=== PATIENT | male | born 1985 | race Caucasian/White ===

== ENCOUNTER 2020-10-24 10:17 | Day surgery (SDC) | payer OTHER ==
[~2020-10-24] VITALS: Ht 182.9 cm; Wt 155.8 kg
[~2020-10-24 10:17] MED LIST: BUPIVACAINE/PF 0.25% ONE
[2020-10-24] MEDS ORDERED: FENTANYL PF 250 MCG/5ML ONE (10:43)
[2020-10-24] MEDS ORDERED: MIDAZOLAM 1 MG/ML, 2ML ONE (10:43)
[2020-10-24] MEDS ORDERED: NO HOME MEDS PER PT (10:58)
[2020-10-24] MEDS ORDERED: CHLORHEXIDINE 15 ML UDC ONE (10:59)
[2020-10-24] MEDS ORDERED: CHLORHEXIDINE 15 ML UDC MM ONE (11:00)
[2020-10-24] MEDS ORDERED: LACTATED RINGERS 1,000 ML IV SCH (11:00)
[2020-10-24 11:25] VITALS: BP 152/91
[2020-10-24] MEDS ORDERED: NEOSTIGMINE 1 MG/ML, 10ML ONE (11:39)
[2020-10-24] MEDS ORDERED: DEXAMETHASONE 4 MG/ML, 1ML ONE (11:39)
[2020-10-24] MEDS ORDERED: ONDANSETRON 2MG/ML, 2ML ONE (11:39)
[2020-10-24] MEDS ORDERED: SUCCINYLCHOLINE 20 MG/ML, 10ML ONE ×2 (11:39→13:27)
[2020-10-24] MEDS ORDERED: ROCURONIUM 10MG/ML,5ML ONE ×2 (11:39→13:27)
[2020-10-24] MEDS ORDERED: GLYCOPYRROLATE 0.2MG/1ML, 5ML ONE (11:39)
[2020-10-24] MEDS ORDERED: PROPOFOL 10 MG/ML, 20ML ONE (11:39)
[2020-10-24] MEDS ORDERED: CEFAZOLIN 1,000 MG ONE (11:39)
[2020-10-24] MEDS ORDERED: FENTANYL PF 100 MCG/2ML IV PRN (13:00)
[2020-10-24] MEDS ORDERED: HYDROmorphone 2 MG/ML, 1ML IVPush PRN (13:00)
[2020-10-24] MEDS ORDERED: LABETALOL 5MG/ML, 20ML IV PRN (13:00)
[2020-10-24] MEDS ORDERED: KETOROLAC 30 MG/1 ML IV PRN (13:00)
[2020-10-24] MEDS ORDERED: OXYcodone 5 MG/5 ML ORAL.SOL UDC PO PRN (13:00)
[2020-10-24] MEDS ORDERED: MEPERIDINE/PF 25MG/0.5ML IVPush PRN (13:00)
[2020-10-24] MEDS ORDERED: PROMETHAZINE 25 MG/ML, 1ML IV PRN (13:00)
[2020-10-24] MEDS ORDERED: ACETAMINOPHEN 325 MG TABLET PO PRN (13:00)
[2020-10-24] MEDS ORDERED: ALBUTEROL SULFATE 2.5 MG/3 ML NPPB PRN (13:00)
[2020-10-24] MEDS ORDERED: hydrALAzine 20 MG/ML, 1ML IV PRN (13:00)
[2020-10-24] MEDS ORDERED: DIAZEPAM 5 MG/ML, 2ML IVPush PRN (13:00)
== END 2020-10-24 15:30 | disposition home or self-care (01) ==
LOC: OUT 10:17
PROVIDERS: ATTEND Orthopaedic Surgery
DX: S46.111A Strain of muscle, fascia and tendon of long head of biceps, right arm, initial encounter (principal); E66.01 Morbid (severe) obesity due to excess calories; G89.18 Other acute postprocedural pain; Z20.822 Contact with and (suspected) exposure to COVID-19; Z79.899 Other long term (current) drug therapy; Z82.61 Family history of arthritis; X50.0XXA Overexertion from strenuous movement or load, initial encounter; Y93.89 Activity, other specified; Y92.89 Other specified places as the place of occurrence of the external cause; Y99.0 Civilian activity done for income or pay
CPT/HCPCS: 24341; 64415; 73070; 87635; J0330; J0690; J1100; J2250; J2405; J2704; J3010; 76000; J2710